=== PATIENT | female | born 2000 | race Caucasian/White ===

== ENCOUNTER 2023-02-04 00:09 | Emergency (ER) | payer OTHER ==
[2023-02-04] MEDS ORDERED: Lidocaine 1% with EPINEPHrine 1:100,000 50 ML MDV INFILT ONE (01:10)
[2023-02-04] MEDS ORDERED: Diphtheria/Tetanus Toxoids,Adult (Td) 0.5 ML SDV IM ONE (01:23)
== END 2023-02-04 01:40 | disposition home or self-care (01) ==
LOC: LB.ED 00:09
DX: S61.511A Laceration without foreign body of right wrist, initial encounter (principal); E66.9 Obesity, unspecified; Z68.43 Body mass index [BMI] 50.0-59.9, adult; Z23 Encounter for immunization; Z91.048 Other nonmedicinal substance allergy status; Z79.899 Other long term (current) drug therapy; W26.8XXA Contact with other sharp object(s), not elsewhere classified, initial encounter
CPT/HCPCS: 12001; 90471; 90714; 99282; 99283-25

== ENCOUNTER 2024-06-14 16:05 | Emergency (ER) | payer OTHER ==
[2024-06-14] MEDS: Ondansetron 4 MG/2 ML SDV IVPUSH ONE (16:40)
[2024-06-14] MEDS: Sodium Chloride 0.9% 1,000 ML IV ONE (16:42)
[2024-06-14 16:45] LABS: BASOPHILS ABSOLUTE AUTO 0.02 K/uL (0.02-0.10); BASOPHILS PERCENT AUTO 0.2 % (0.0-0.5); EOSINOPHILS ABSOLUTE AUTO 0.01 K/uL (0.04-0.40); EOSINOPHILS PERCENT AUTO 0.1 % (1.0-5.0); HEMOGLOBIN 15.2 g/dL (11.5-16.5); LYMPHOCYTES ABSOLUTE AUTO 2.54 K/uL (1.50-4.00); LYMPHOCYTES PERCENT AUTO 21.8 % (20.0-40.0); MEAN CORPUSCULAR HGB CONC 34.5 g/dL (31.0-35.0); MEAN CORPUSCULAR VOLUME 95 fL (76-96); MEAN PLATELET VOLUME 10.2 fL (6.0-10.0); MONOCYTES PERCENT AUTO 5.2 % (3.0-10.0); NEUTROPHILS ABSOLUTE AUTO 8.47 K/uL (2.00-7.50); NEUTROPHILS PERCENT AUTO 72.7 % (45.0-70.0); PLATELET COUNT,PLT 325 K/uL (150-500); RED BLOOD CELL COUNT 4.61 M/uL (3.80-5.80); RED CELL DISTRIBUTION WIDTH 13.1 % (11.0-16.0); WHITE BLOOD CELL COUNT,WBC 11.6 K/uL (4.0-11.0)
[2024-06-14] MEDS: GI Cocktail Oral Solution 30 ML PO ONE (16:45)
[2024-06-14 17:06] LABS: A/G RATIO 0.9 (0.8-2.0); ALBUMIN 3.7 g/dL (3.4-5.0); ANION GAP 13.7 mmol/L (5.0-15.0); BUN/CREATININE RATIO 16.3 (6-25); CALCIUM 9.2 mg/dL (8.5-10.1); CARBON DIOXIDE,CO2 27.6 mmol/L (21.0-32.0); CREATININE 0.92 mg/dL (0.55-1.02); EST CRCL DRUG DOSING (CG) 77.33 mL/min; POTASSIUM,K 4.3 mmol/L (3.5-5.1); PROTEIN TOTAL,TP 7.7 g/dL (6.4-8.2)
[2024-06-14] MEDS: HYDROmorphone 2 MG/ML Syringe IVPUSH ONE ×2 (17:30→18:19)
[2024-06-14 17:31] LABS: APPEARANCE,URINE CLEAR (CLEAR); BILIRUBIN,URINE NEGATIVE (NEGATIVE); COLOR,URINE YELLOW; GLUCOSE,URINE NEGATIVE (NEGATIVE); KETONES,URINE NEGATIVE (NEGATIVE); OCCULT BLOOD,URINE NEGATIVE (NEGATIVE); PROTEIN,URINE NEGATIVE (NEGATIVE)
[2024-06-14 17:32] LABS: LEUKOCYTE ESTERASE,URINE NEGATIVE (NEGATIVE); NITRITE,URINE NEGATIVE (NEGATIVE); RBC,URINE NOT SEEN /HPF; SQUAMOUS EPITHELIAL CELLS,UR MODERATE /HPF; WBC,URINE NOT SEEN /HPF
[2024-06-14] MEDS ORDERED: Naloxone 2 MG/2 ML Syringe IVPUSH PRN (17:34)
[2024-06-14] MEDS: HYDROmorphone 2 MG/ML Syringe ONE ×2 (17:38→18:20)
[2024-06-14] MEDS ORDERED: Acetaminophen/HYDROcodone 325-5 MG Tab ONE (19:00)
== END 2024-06-14 19:33 | disposition home or self-care (01) ==
LOC: LB.ED 16:05
DX: R10.13 Epigastric pain (principal); Z88.8 Allergy status to other drugs, medicaments and biological substances; Z79.84 Long term (current) use of oral hypoglycemic drugs; Z79.899 Other long term (current) drug therapy
CPT/HCPCS: 36415; 74176; 80053; 81001; 81025; 83605; 83690; 85025; 96361; 96374; 96375; 96376; 99284; A9270; J1170; J2405; J7030